=== PATIENT | male | born 1935 ===

== ENCOUNTER 2019-09-23 07:26 | Day surgery (SDC) | payer MEDICARE, OTHER ==
[2005-06-27 11:26] VITALS: BP 137/93
[2019-09-23] VITALS (7 sets, daily range): BP systolic 103–119; BP diastolic 49–79; PULSE 63–93; TEMP 97.7–98.6
[~2019-09-23] VITALS: Ht 180.3 cm; Wt 84.4 kg
[2019-09-23] MEDS ORDERED: FLONASE NASAL S16 GM NS (09:18)
[2019-09-23] MEDS ORDERED: AMBIEN 5MG TABLE5 MG PO (09:20)
[2019-09-23] MEDS ORDERED: LOPRESSOR 225 MG/TAB PO (09:21)
[2019-09-23] MEDS ORDERED: PRIL40 PO (09:25)
[2019-09-23] MEDS ORDERED: FLOMAX 0.40.4 MG/CAP PO (09:26)
[2019-09-23] MEDS ORDERED: LIPITOR 10MG10 MG PO (09:27)
[2019-09-23] MEDS ORDERED: RT ALBUTER2.5 MG/0.5 IH (09:30)
[2019-09-23] MEDS ORDERED: SINGULAIR 110 MG/TAB PO (09:35)
[2019-09-23 14:05] LABS: PLEURAL FLUID RBC 35000 /mm3 (0-0); PLEURAL FLUID WBC 1438 /mm3
[2019-09-23 14:08] LABS: GLUCOSE,PLEURAL FLUID 85 mg/dL; TOTAL PROTEIN,PLEURAL FLUID 4.9 gm/dL
[2019-09-23 14:09] LABS: PLEURAL FLUID APPEARANCE HAZY; PLEURAL FLUID COLOR RED
--- NOTE | 2019-09-23 15:02 | NUR ---
PT RETURNED FROM OR INTO BAY#7. PT WITH O2 AT 2L WITH SATS REMAINING IN THE 90%. COUGHING AND SPITTING UP THICK RED DRAINAGE. ORAL SUCTION WAS COMPLETED TO CLEAR SECRETIONS. LUNGS COARSE ON THE RIGHT SIDE. LUNG SOUNDS DIMINISHED ON THE RIGHT SIDE WITH UPPER EXPIRATORY WHEEZES. LUNG SOUNDS TO LEFT LUNG MORE CLEAR AND DIMINISHED. PT C/O LEFT SIDED SHOULDER PAIN, HOWEVER ISNT DIFFERENT THAN WHAT HE HAD EXPERIENCED AT HOME PRIOR TO PROCEDURE. HRR, BOWEL SOUNDS ACTIVE. PT A/OX3, DENIES SOB AT THIS TIME. WILL CONT TO MONITOR.
--- NOTE | 2019-09-23 15:10 | NUR ---
PT MAINTAINING SATS AT 93-95% RANGE ON ROOM AIR. PT DENIES PAIN AT THIS TIME. CONTINUES TO COUGH SPONTANEOUSLY BRINGING UP CREAM TO RED COLORED DRAINAGE IN SMALL AMOUNTS. PT DENIES SOB. STATES WATER AND APPLESAUCE SOUNDS GOOD TO EAT/DRINK. AT BEDSIDE. WILL CONT TO MONITOR PROGRESS.
--- NOTE | 2019-09-23 15:17 | NUR ---
PT TOLERATING WATER AND APPLESAUCE. COUGHING ALOT LESS NOW, SUCTION NOT BEING UTILIZED HOWEVER IS STILL AT BEDSIDE. PT TALKING WITH . DENIES NAUSEA/VOMITING AT THIS TIME. DENIES PAIN. SATS MAINTAINED AT 95% ON ROOM AIR. PT READY TO GO HOME AND HAVE A SANDWICH. WILL CONT TO MONITOR.
--- NOTE | 2019-09-23 15:21 | NUR ---
PT TOLERATING FOOD AND FLUIDS, SATS ARE MAINTAINED AT 96% ON ROOM AIR. DENIES SOB. SMALL AMOUNT OF DRAINAGE COUGHED UP, SIZE OF A QUARTER. DRAINAGE WAS RED TINGED AND THICK IN COLOR. PT DENIES PAIN AND IS READY TO GET HOME. #20 WAS DC'D PER RIGHT WRIST. DISCHARGE INSTRUCTIONS GIVEN TO PT AND . PT AND , JOANNA VOICE UNDERSTANDING. EMESIS BASIN WAS GIVEN TO PT ALONG WITH DC INSTRUCTIONS. PT TAKEN TO FAMILY VEHICLE PER WC.
== END 2019-09-23 12:30 | disposition home or self-care (01) ==
LOC: SDCO 07:26
PROVIDERS: Internal Medicine Pulmonary Disease
DX: C34.91 Malignant neoplasm of unspecified part of right bronchus or lung (principal); J91.0 Malignant pleural effusion; R04.2 Hemoptysis; I10 Essential (primary) hypertension; K21.9 Gastro-esophageal reflux disease without esophagitis; R63.0 Anorexia; Z68.27 Body mass index [BMI] 27.0-27.9, adult; M19.90 Unspecified osteoarthritis, unspecified site; G47.33 Obstructive sleep apnea (adult) (pediatric); G62.9 Polyneuropathy, unspecified; N40.0 Benign prostatic hyperplasia without lower urinary tract symptoms; R41.3 Other amnesia; Z79.899 Other long term (current) drug therapy; Z88.1 Allergy status to other antibiotic agents; Z87.891 Personal history of nicotine dependence
CPT/HCPCS: J2704; J7030